=== PATIENT | female | born 1955 | race Caucasian/White ===

== ENCOUNTER 2017-02-08 11:39 | Emergency (ER) | payer OTHER ==
[~2017-02-08] VITALS: Ht 157.5 cm; Wt 85.3 kg
[~2017-02-08 11:39] MED LIST: AMOX-999 PO; ASPI81CT89 PO; CHLO25TA33 PO; LOVA20TA2 PO; MULT-1469 PO; NIFE60TE79 PO
[2017-02-08 12:14] VITALS: BP 149/70
--- NOTE | 2017-02-08 12:48 | NUR ---
Patient ambulated to OF with family. RN evaluating patient.
--- NOTE | 2017-02-08 12:50 | NUR ---
BROUGHT IN WITH LT. EAR PAIN X2WKS. SEEN BY HER DOCTOR WITH PRESCRIPTION BUT NOT GETTING BETTER.
--- NOTE | 2017-02-08 12:52 | NUR ---
Dr. Finnegan evaluating patient as fast track in OF.
--- NOTE | 2017-02-08 13:16 | NUR ---
LT. EAR BEING IRRIGATED BY EMT WITH SALINE AND HYDROGEN PEROXIDE PER ERMD ORDER
[2017-02-08 13:29] VITALS: BP 144/65
--- NOTE | 2017-02-08 13:29 | NUR ---
Patient discharged with v/s stable. Written and verbal after care instructions given and explained. Patient verbalized understanding. Ambulatory with steady gait WITH SISTER. All questions addressed prior to discharge. Advised to follow up with PMD.
== END 2017-02-08 13:29 | disposition home or self-care (01) ==
LOC: MED 11:39
DX: H61.22 Impacted cerumen, left ear (principal)
CPT/HCPCS: 99282; 99283

== ENCOUNTER 2017-06-13 07:57 | Emergency (ER) | payer OTHER ==
[~2017-06-13] VITALS: Ht 160 cm; Wt 85.3 kg
[2017-06-13 08:02] VITALS: BP 156/73
--- NOTE | 2017-06-13 08:10 | NUR ---
PT TAKEN TO CHAIR B.
--- NOTE | 2017-06-13 08:18 | NUR ---
PT'S SISTER AT BEDSIDE, PT IS DEAF. REPORTS PT WENT TO [facility] LAST NIGHT FOR LEFT SIDED PAIN, CT DONE AND NEG FOR STROKE-DISCHARGED WITH MOTRIN ONLY. PT HERE WITH C.O LEFT SIDED NECK, THROAT AND EAR PAIN. SISTER REPORTS SHE HAS A HX OF THYROID CYST AND IS IN THE PROCESS OF GETTING IT REMOVED. NO REDNESS OR OBVIOUS SWELLING NOTED. ALSO REPORTS THAT SHE STARTED WITH A [employer]ICAL WORKER COUGH THIS AM. DENIES FEVERS/CHILLS. RESP EVEN AND UNLABORED, LS-CLR RIP. IN NAD. WAITING FOR ER MD ROWLEY.
--- NOTE | 2017-06-13 08:20 | NUR ---
DR MORAN AT BEDSIDE FOR EXAM
[2017-06-13 08:56] VITALS: BP 156/73
--- NOTE | 2017-06-13 08:57 | NUR ---
Patient discharged with v/s stable. Written and verbal after care instructions given and explained. Patient alert, oriented and verbalized understanding of instructions. Ambulatory with steady gait. All questions addressed prior to discharge. ID band removed. Patient advised to follow up with PMD. Rx of PREDNISONE/Z PACK/ ANTIVERT given. Patient educated on indication of medication including possible reaction and side effects. Opportunity to ask questions provided and answered.
== END 2017-06-13 08:57 | disposition home or self-care (01) ==
LOC: MED 07:57
DX: H69.92 Unspecified Eustachian tube disorder, left ear (principal); H65.92 Unspecified nonsuppurative otitis media, left ear; I10 Essential (primary) hypertension; Z88.5 Allergy status to narcotic agent; Z88.6 Allergy status to analgesic agent
CPT/HCPCS: 99283

== ENCOUNTER 2017-08-28 10:05 | Emergency (ER) | payer OTHER ==
[~2017-08-28] VITALS: Ht 160 cm; Wt 72.6 kg
--- NOTE | 2017-08-28 10:05 | NUR ---
Pt placed in bed 4 by EMS.
[2017-08-28 10:09] VITALS: BP 164/66
--- NOTE | 2017-08-28 10:15 | NUR ---
61 YO F BIBA WITH RIGHT SIDED ABD PAIN SINCE THIS AM. ZOFRAN GIVEN INROUTE BY EMS. PT STATE CRAMPING ON RIGHT UPPER/LOWER ABD WITH PRESSURE THAT TRAVLES UP THROAT. PAIN 10/10. PT DENIES AND CP, SOB AT THIS TIME. BS ACTIVE X4 QUADRENTS. LS CLEAR THROUGH OUT. ERMD MADE AWARE WILL CONTINUE TO MONITOR
--- NOTE | 2017-08-28 10:23 | NUR ---
Patient being evaluated by physician at bedside.
[2017-08-28] MEDS ORDERED: LIDOCAINE VISCOUS 2% 20 ML UDC PO ONE (10:30)
[2017-08-28] MEDS ORDERED: DICYCLOMINE HCL LIQUID 10 MG/5 ML UDC PO ONE (10:30)
[2017-08-28] MEDS ORDERED: ALUMINUM HYD/MAG/SIMETHICONE 30 ML UDC PO ONE (10:30)
[2017-08-28] MEDS ORDERED: PANTOPRAZOLE 40 MG TABEC PO ONE (10:30)
--- NOTE | 2017-08-28 10:53 | NUR ---
SUZIE C/O ISSA, NO HIVES NOTED. YANI FREY MADE AWARE Addendum: 08/28/17 at 1054 by [facility] TO INTERVENTIONS TO BE IMPLIMENTED AT THIS TIME
[2017-08-28] MEDS ORDERED: KETOROLAC 60 MG/2 ML VIAL IM ONE (11:15)
--- NOTE | 2017-08-28 11:23 | NUR ---
Pt taken to x-ray via w/c.
--- NOTE | 2017-08-28 11:23 | NUR ---
PT TO XRAY VIA W/C WITH HEAD BAKER
[2017-08-28 12:51] VITALS: BP 143/67
--- NOTE | 2017-08-28 12:51 | NUR ---
Patient discharged with v/s stable. Written and verbal after care instructions given and explained. Patient alert, oriented and verbalized understanding of instructions. Ambulatory with steady gait. All questions addressed prior to discharge. ID band removed. Patient advised to follow up with PMD. Rx of MAALOX ADVANCED REG, OMEPRAZOLE 40 MG, CIPROLEX 0.3% given. Patient educated on indication of medication including possible reaction and side effects. Opportunity to ask questions provided and answered.
== END 2017-08-28 12:51 | disposition home or self-care (01) ==
LOC: MED 10:05
DX: K29.70 Gastritis, unspecified, without bleeding (principal); I10 Essential (primary) hypertension; E07.9 Disorder of thyroid, unspecified; Z79.899 Other long term (current) drug therapy; Z79.82 Long term (current) use of aspirin; Z88.5 Allergy status to narcotic agent; Z88.8 Allergy status to other drugs, medicaments and biological substances
CPT/HCPCS: 74022; 81002; 81025; 93005; 96372; 99284; J1885

== ENCOUNTER 2017-11-19 08:01 | Emergency (ER) | payer OTHER ==
[~2017-11-19] VITALS: Ht 162.6 cm; Wt 81.6 kg
[~2017-11-19 08:01] MED LIST changes: -AMOX-999 PO; -CHLO25TA33 PO
[2017-11-19 08:03] VITALS: BP 143/67
[2017-11-19] MEDS ORDERED: MECL-272 PO (08:13)
[2017-11-19] MEDS ORDERED: LORA10TA19 PO (08:13)
[2017-11-19] MEDS ORDERED: IBUP-1842 PO (08:13)
[2017-11-19] MEDS ORDERED: FAMO-90 PO (08:13)
[2017-11-19] MEDS ORDERED: LOSA100T25 PO (08:13)
--- NOTE | 2017-11-19 08:27 | NUR ---
PT BIBA FROM HOME FOR INTERMITTENT DIZZINESS FOR THELAST SEVERAL DAYS, PT IS DEAF AND SISTER WHO IS AT BEDSIDE REPORTS PT'S ISSUES. PT ABLE TO READ LIPS AND ANSWER WITH A SPEECH IMPEDIMENT BUT ABLE TO ANSWER SIMPLE QUESTIONS. PT A0-X3, IN NAD. RESP EVEN AND UNLABORED, ON RA@98%. ABD SOFT, NT, SKIN W/D/I. DENIES SOB OR CP. DR MROAN IN ROOM FOR EXAM.
[2017-11-19] MEDS ORDERED: VITD1000 PO (08:33)
[2017-11-19] MEDS ORDERED: LOVA20TA8 PO (08:33)
[2017-11-19] MEDS ORDERED: ZAR2.5 PO (08:33)
[2017-11-19] MEDS ORDERED: NIFE60TE5 PO (08:33)
[2017-11-19] MEDS ORDERED: ESCI10TA PO (08:33)
[2017-11-19] MEDS ORDERED: MULT-1469 PO (08:33)
[2017-11-19] MEDS ORDERED: FURO-570 PO (08:33)
[2017-11-19] MEDS ORDERED: ASPI81CT89 PO (08:33)
[2017-11-19] MEDS ORDERED: OMEP20TC12 PO (08:33)
[2017-11-19] MEDS ORDERED: NACL 0.9% 1,000 ML IV ONE (08:50)
[2017-11-19] MEDS ORDERED: ONDANSETRON 4 MG/2 ML VIAL IVP ONE (08:50)
[2017-11-19] MEDS ORDERED: PROMETHAZINE 25 MG/ML VIAL IM ONE (08:50)
--- NOTE | 2017-11-19 09:07 | NUR ---
PT WENT TO CT SCAN VIA [facility]
--- NOTE | 2017-11-19 09:12 | NUR ---
Nicolette bustamante in ED - 11/19/17 at 0917 by ASHLEY spoke with sury from er admitting, patient to be admitted to on-call.
--- NOTE | 2017-11-19 09:12 | NUR ---
spoke with sury from er admitting, patient has [facility], to call On-Call for admission.
--- NOTE | 2017-11-19 09:24 | NUR ---
Pt back from Ct Scan, IV fluids Ns bolus started, pt aware of needed urine specimen.
[2017-11-19 09:57] LABS: BASOPHILS % (AUTO) 0.4 % (0.0-2.0); EOSINOPHILS # (AUTO) 0.1 K/uL (0-0.4); EOSINOPHILS % (AUTO) 1.9 % (0.0-4.0); HEMATOCRIT 38.4 % (36-48); HEMOGLOBIN 12.3 g/dL (12.0-16.0); LYMPHOCYTES # (AUTO) 1.1 K/uL (2.5-16.5); LYMPHOCYTES % (AUTO) 14.1 % (20.5-51.1); MEAN CORPUSCULAR HEMOGLOBIN 27 pg (27-31); MEAN CORPUSCULAR HGB CONC 32 g/dL (33-37); MEAN CORPUSCULAR VOLUME 84.4 fL (80-94); MONOCYTES # (AUTO) 0.5 K/uL (0.8-1.0); MONOCYTES % (AUTO) 6.2 % (1.7-9.3); NEUTROPHILS % (AUTO) 77.4 % (42.2-75.2); PLATELET COUNT (AUTO) 235 K/uL (140-450); RED BLOOD CELL COUNT(AUTO) 4.54 MIL/uL (4.20-5.40); RED CELL DISTRIBUTION WIDTH 15.5 % (11.6-13.7); WHITE BLOOD COUNT (AUTO) 7.7 K/uL (4.8-10.8)
[2017-11-19 10:18] LABS: CARBON DIOXIDE 25.6 mmol/L (21-32); CREATININE 1.3 mg/dL (0.6-1.3); POTASSIUM 3.6 mmol/L (3.5-5.1)
[2017-11-19 10:24] LABS: ALBUMIN 3.5 g/dL (3.4-5.0); TOTAL BILIRUBIN 0.3 mg/dL (0.0-1.0)
[2017-11-19 11:07] LABS: PROTHROMBIN TIME 11.2 secs (10.8-13.4)
--- NOTE | 2017-11-19 11:48 | NUR ---
No acute change in conditon, awaiitng admission orders. Pt reports feeling better. Family at bedside.
--- NOTE | 2017-11-19 11:49 | NUR ---
PT WAS ASSISTED TO WALK , HOWEVER WAS NOT ABKLE TO HAVE A STEADY GAIT. PT ASSISTED BACK TO BED AND INFORMED NOT TO GET UP FROM BED. PT INITIALLY HAS REFUSED TO STAY, BUT FAMILY INSISTED PT TO STAY FOR ADMISSION. SAFETY PRECAUTIONS IN PLACE.
--- NOTE | 2017-11-19 12:19 | NUR ---
Note dianna in ED - 11/19/17 at 1221 by ASHLEY patient agreed to stay, per er md ramos, after considering ama. called [facility], spoke with Greta. Awaiting phone call from md Knox.
--- NOTE | 2017-11-19 12:23 | NUR ---
patient agreed to stay, per er md ramos, after considering ama. called [facility], spoke with Greta. Awaiting phone call from md Knox.
--- NOTE | 2017-11-19 12:41 | NUR ---
spoke with eli from pulmonary, to inform wrong doctor was paged for er admission, eli to page jan rangel for admission. awaiting jan rangel call.
[2017-11-19 12:49] LABS: APPEARANCE,URINE CLEAR (CLEAR); BILIRUBIN,URINE NEGATIVE (NEGATIVE); BLOOD, URINE NEGATIVE (NEGATIVE); COLOR,URINE YELLOW (YELLOW); LEUKOCYTE ESTERASE ,URINE NEGATIVE (NEGATIVE); NITRITE, URINE NEGATIVE (NEGATIVE); PH,URINE 5.5 (5.0-9.0); UGLUCOSE NEGATIVE (NEGATIVE)
[2017-11-19 12:52] LABS: RBC,URINE 0-5 (RARE) /HPF (0-5); WBC,URINE 0-5 (RARE) /HPF (0-5)
[2017-11-19 12:53] LABS: YEAST,URINE Rare /HPF (None Seen)
--- NOTE | 2017-11-19 13:07 | NUR ---
jan rangel did not accept, wants patient to be transferred to stroke center, per er md ramos. calling [facility]. will follow up. charge ambrocio marquez.
--- NOTE | 2017-11-19 13:12 | NUR ---
er md ramos spoke with [facility] er md nash, need to consult neurologist. awaiting follow up phone call.
--- NOTE | 2017-11-19 13:14 | NUR ---
[facility] er md newist called back, unable to accept patient due to no bed able at this time for transfer. informed er md ramos and rn discharge john.
--- NOTE | 2017-11-19 13:44 | NUR ---
[facility] at saturation and unable to accept patient for transfer. rn discharge JOhn notified and ER md tolliver notified.
--- NOTE | 2017-11-19 13:48 | NUR ---
[facility]aina montoya md for direct admit per er md tolliver request. awaiting follow up phone call.
--- NOTE | 2017-11-19 14:06 | NUR ---
er secamy called back, spoke with jenny tolliver, patient accepted. informed bellows charger assembler JOhn.
--- NOTE | 2017-11-19 14:26 | NUR ---
PT LAYING IN BED, FAMILY AT BEDSIDE. VSS, DENIES ANY PAIN OR SOB.
--- NOTE | 2017-11-19 14:28 | NUR ---
PT REQUESTING FOOD, OK TO EAT PER DR WADE. ORDERED TRAY
[2017-11-19 16:32] VITALS: BP 135/73
--- NOTE | 2017-11-19 16:33 | NUR ---
Patient to be transferred to [facility]. Is being transferred due to . Receiving facility has accepting physician and available space. ER physician has signed transfer form. Patient or responsible green party has agreed to transfer and signed form. Patient belongings inventoried and will be sent with patient. Copy of nursing notes, lab reports, EKG, Physicians Orders and X-rays to be sent with patient. Report called to at receiving facility. ambulance service has been called for transfer. ETA is .
== END 2017-11-19 16:33 | disposition short-term general hospital (02) ==
LOC: MED 08:01
DX: R42 Dizziness and giddiness (principal); R27.0 Ataxia, unspecified; R11.2 Nausea with vomiting, unspecified; R51 Headache; I10 Essential (primary) hypertension; Z85.3 Personal history of malignant neoplasm of breast; Z88.6 Allergy status to analgesic agent; Z88.5 Allergy status to narcotic agent; Z79.899 Other long term (current) drug therapy; Z79.1 Long term (current) use of non-steroidal anti-inflammatories (NSAID)
CPT/HCPCS: 36415; 70450; 71045; 80053; 81001; 82150; 83690; 84484; 85025; 85610; 85730; 93005; 96361; 96372; 96374; 99285; J2405; J2550; Q0092; J7030